=== PATIENT | male | born 1960 | race Caucasian/White ===

== ENCOUNTER → 2017-07-13 | Outpatient (CLI) | payer BC ==
--- NOTE | 2017-07-13 13:19 | Diagnostic Imaging Report ---
PROCEDURE: CT sinuses without contrast TECHNIQUE: Multiple contiguous axial images were obtained through the sinuses without the use of intravenous contrast. Coronal and sagittal reformations were then performed. INDICATION: Sinus pain and pressure around the left orbit and left face. FINDINGS: There is minimal mucosal thickening or mucous retention cyst in the inferior aspect of the left maxillary sinus. There is a patent ostiomeatal complex on both sides. The ethmoidal air cells and frontal sinuses appear clear. The sphenoidal sinuses appear clear. The mastoid air cells and the middle ear cavities are clear. The inferior turbinates demonstrate moderate mucosal thickening. There is mild nasal septal deviation to the right side. The orbits appear symmetric with no soft tissue mass identified. IMPRESSION: Minimal mucosal thickening along the inferior aspect of the left maxillary sinus. Mucosal thickening along the inferior turbinates without significant narrowing of the nasal passages. Dictated by: Dictated on workstation # [id number]
== END ==
LOC: RAD 12:15
PROVIDERS: ATTEND Otolaryngology Otolaryngology/Facial Plastic Surgery
DX: J34.9 Unspecified disorder of nose and nasal sinuses (principal)
CPT/HCPCS: 70486

== ENCOUNTER → 2017-09-15 | Outpatient (CLI) | payer BC | LOC: RAD 17:02 | PROVIDERS: ATTEND Orthopaedic Surgery | DX: M54.2 Cervicalgia (principal) ==

== ENCOUNTER → 2021-11-19 | Outpatient (CLI) | payer BC ==
[2021-11-19 11:44] LABS: BASOPHILS % (AUTO) 1 % (0-10); EOSINOPHILS # (AUTO) 0.1 10^3/uL (0.0-0.3); EOSINOPHILS % (AUTO) 2 % (0-10); HEMATOCRIT 49 % (40-54); HEMOGLOBIN 15.9 g/dL (13.3-17.7); LYMPHOCYTES # (AUTO) 0.6 10^3/uL (1.0-4.0); LYMPHOCYTES % (AUTO) 16 % (12-44); MEAN CORPUSCULAR HEMOGLOBIN 30 pg (25-34); MEAN CORPUSCULAR HGB CONC 32 g/dL (32-36); MEAN CORPUSCULAR VOLUME 92 fL (80-99); MEAN PLATELET VOLUME 10.5 fL (9.0-12.2); MONOCYTES # (AUTO) 0.3 10^3/uL (0.0-1.0); MONOCYTES % (AUTO) 10 % (0-12); NEUTROPHILS # (AUTO) 2.4 10^3/uL (1.8-7.8); NEUTROPHILS % (AUTO) 71 % (42-75); PLATELET COUNT 191 10^3/uL (130-400); WHITE BLOOD COUNT 3.4 10^3/uL (4.3-11.0)
[2021-11-19 12:02] LABS: BILIRUBIN,TOTAL 0.8 MG/DL (0.1-1.0); CALCIUM 9.6 MG/DL (8.5-10.1); CREATININE SERUM 1.36 MG/DL (0.60-1.30); POTASSIUM 4.2 MMOL/L (3.6-5.0); TOTAL PROTEIN 7.9 GM/DL (6.4-8.2)
--- NOTE | 2021-11-19 14:03 | Diagnostic Imaging Report ---
INDICATION: Weakness, cough, tiredness. FINDINGS: Two views of the chest demonstrate questionable tiny nodules in the left upper lobe. The right lung is clear. The heart is normal. There is no pneumothorax or effusion. Osseous structures are normal. IMPRESSION: Questionable nodules in the left upper lobe. CT chest recommended. Dictated by: Dictated on workstation # [id number]
== END ==
LOC: RAD 10:59
PROVIDERS: ATTEND Family Medicine
DX: R53.1 Weakness (principal); R05.9 Cough, unspecified; R53.83 Other fatigue
CPT/HCPCS: 36415; 71046; 80053; 85025; 86141

== ENCOUNTER → 2021-11-25 | Outpatient (CLI) | payer BC ==
[~2021-11-25] MED LIST: CATHETER FLUSH 10 ML SYR IV PRN; HOLD METFORMIN - RECEIVED CONTRAST 20 ML VIAL IV SCH; IOHEXOL 350 MG/ML 100 ML (OMNIPAQUE 350) VIAL IV ONE; NS 100 ML (IVPB) BAG IV ONE
--- NOTE | 2021-11-25 10:13 | Diagnostic Imaging Report ---
PROCEDURE: CT chest, abdomen, and pelvis with contrast. TECHNIQUE: Multiple contiguous axial images were obtained through the chest, abdomen, and pelvis after the administration of intravenous contrast. Auto Exposure Controls were utilized during the CT exam to meet ALARA standards for radiation dose reduction. INDICATION: Diffuse pain, flulike symptoms, recent chest radiograph shows indeterminate opacities in the left upper lobe. COMPARISON: No relevant comparison. CHEST: Some small mass in the left upper lobe centrally soft tissue in density, it does have a peripheral groundglass halo. When measured on lung windows it has a diameter of 1.4 cm. Peripheral to the nodule is some groundglass in subsolid regional nodularity of only 3 to 4 mm. A malignancy cannot be excluded, metabolic PET CT suggested as further evaluation. No other lung mass. No findings suggestive of typical pneumonia no effusion or pneumothorax is no axillary, hilar or mediastinal lymphadenopathy. There is no suspicious lytic or sclerotic bony lesion. The supraclavicular fossae unremarkable. The aorta is nonaneurysmal. ABDOMEN AND PELVIS: Liver'S density is consistent with its mild fatty infiltration. There is a benign cyst in the left hepatic lobe, no solid enhancing or suspect liver lesion, gallbladder and bile ducts normal. The spleen, adrenals and pancreas unremarkable. The unobstructed kidneys normal. There is no mesenteric or retroperitoneal lymphadenopathy. No ascites or omental infiltration. There are a few noninflamed diverticula of the sigmoid, the air-containing appendix is normal. No ascites, abscess hematoma or acute fluid collection. There is aortoiliac atherosclerotic vascular calcifications without aneurysm or acute finding. No features of end organ ischemia. IMPRESSION: 1. Left upper lobe nodularity with dominant mixed density 1.4 cm mass. Density could not be excluded. Recommend correlated metabolic PET CT as followup. 2. No thoracic abdominal or pelvic lymphadenopathy. No other potential neoplastic finding or acute abnormality shown.. Dictated by: Dictated on workstation # [id number]
== END ==
LOC: RAD 08:45
PROVIDERS: ATTEND Family Medicine
DX: R91.8 Other nonspecific abnormal finding of lung field (principal); R10.11 Right upper quadrant pain
CPT/HCPCS: 71260; 74177

== ENCOUNTER → 2021-12-09 | Outpatient (CLI) | payer BC ==
--- NOTE | 2021-12-09 13:31 | Diagnostic Imaging Report ---
INDICATION: Left upper lobe lung mass. Serum blood glucose level at time of injection is 184 mg/dL. Patient was administered 13.7 mCi F-18 FDG intravenously in the left forearm and PET imaging was performed from the top of skull to mid thighs. Noncontrast CT was also performed for attenuation correction and anatomic correlation. No prior PET/CT studies are available for comparison. Comparison is made with prior conventional CT of the chest, abdomen and pelvis from 11/25/2021. There is symmetric activity throughout the brain. Soft tissues of the neck are unremarkable. The areas of nodularity in the left upper lobe noted on recent CT did demonstrate FDG avidity. The dominant subpleural nodule left upper lobe demonstrates SUV max of 7.2. No mediastinal or hilar hypermetabolism is identified. There is physiologic activity throughout the gastrointestinal and genitourinary tracts of the abdomen and pelvis. No other suspicious abnormalities are seen. IMPRESSION: Hypermetabolic nodule in the left upper lobe, suspicious for lung neoplasm. No mediastinal or hilar hypermetabolism is seen. Dictated by: Dictated on workstation # [id number]
== END ==
LOC: RAD 08:23
PROVIDERS: ATTEND Family Medicine
DX: R91.1 Solitary pulmonary nodule (principal)
CPT/HCPCS: 78815; A9552

== ENCOUNTER 2022-01-03 08:15 | Outpatient (CLI) | payer BC ==
--- NOTE | 2021-12-20 06:46 | HISTORY AND PHYSICAL ---
DATE OF SERVICE: CHIEF COMPLAINT: To have a needle biopsy by radiologist of lung, has hyperaerated nodule and left upper lobe mass. ALLERGIC TO MEDICATIONS: Denies. MEDICATIONS NOW ON: Metformin 500 mg 2 in the a.m. and one in p.m., Farxiga 10 mg 1 daily, glyburide low dose aspirin, the patient took it today too. The patient told to stop taking his aspirin and to check with radiology when he should have this procedure done. PAST SURGICAL HISTORY: Neck with four fractures of discs, left leg and left foot same time, he had ____ problem. FAMILY HISTORY: Mom of pancreatic cancer. Denies asthma, TB, diabetes, heart disease. REVIEW OF SYSTEMS: HEAD: Denies headache, dizziness, fainting. EYES, EARS, NOSE AND THROAT: Denies diplopia, tinnitus, sore throat. HEART: Denies heart murmur, chest pain or shortness of breath. LUNGS: Never smoked. Denies asthma, TB. Previously had a cough and congestion. No wheezing. GASTROINTESTINAL: Appetite good. Denies blood in stools, diarrhea or constipation. GENITOURINARY: Denies blood, pain. Last night urinated one time. Has history of diabetes. The patient's fasting blood sugar this morning is 161. PHYSICAL EXAMINATION: GENERAL: The patient is a white male, well nourished, well developed, in no acute respiratory distress at rest. VITAL SIGNS: Weight 202, blood pressure 140/90, pulse 72. EARS: No discharge. EYES: No conjunctivitis or icterus. THROAT: Noninflamed. NECK: Thyroid not enlarged. No abnormal cervical lymphadenopathy noted. HEART: Regular rate and rhythm. LUNGS: Essentially clear. ABDOMEN: Soft. Liver and spleen nonpalpable. PLAN: The patient okay to have surgery once the aspirin is out of his system and the patient is diabetic, the patient has hyperlipidemia, he is on Livalo for that. Again, touch with radiology that the patient has been on aspirin. Job ID: [id number] DocumentID: [id number] Dictated Date: 12/18/2021 09:02:14 Graduate Research Assistant Date: 12/18/2021 09:15:06 Dictated By: RUBIO FISH DO
[~2022-01-03] VITALS: Ht 178 cm; Wt 94.4 kg
[2022-01-03] VITALS (11 sets, daily range): BP systolic 100–138; BP diastolic 54–86
[2022-01-03] MEDS ORDERED: NS IV 1000 ML 1,000 ML IV STA (08:19)
[2022-01-03] MEDS ORDERED: fentaNYL INJ 100 MCG/2 ML AMP IVP ONE (08:30)
[2022-01-03] MEDS ORDERED: MIDAZOLAM 2 MG/2 ML (VERSED) VIAL IVP ONE (08:30)
[2022-01-03] MEDS ORDERED: LIDOCAINE 1% INJ 20 ML VIAL INJ ONE (08:30)
[2022-01-03 09:03] LABS: HEMATOCRIT 43 % (40-54); HEMOGLOBIN 13.9 g/dL (13.3-17.7); MEAN CORPUSCULAR HEMOGLOBIN 30 pg (25-34); MEAN CORPUSCULAR HGB CONC 33 g/dL (32-36); MEAN CORPUSCULAR VOLUME 92 fL (80-99); MEAN PLATELET VOLUME 9.7 fL (9.0-12.2); PLATELET COUNT 233 10^3/uL (130-400); WHITE BLOOD COUNT 3.5 10^3/uL (4.3-11.0)
[2022-01-03] MEDS ORDERED: METF-397 PO ×2 (09:04→14:37)
[2022-01-03] MEDS ORDERED: ASPI-999 PO (09:04)
[2022-01-03] MEDS ORDERED: DAPA10TA PO (09:06)
[2022-01-03] MEDS ORDERED: GLYB1.253 PO (09:06)
[2022-01-03 09:17] LABS: INR 0.9 (0.8-1.4); PROTHROMBIN TIME PATIENT 12.9 SEC (12.2-14.7)
[2022-01-03] MEDS ORDERED: fentaNYL INJ 100 MCG/2 ML AMP ONE (11:34)
[2022-01-03] MEDS ORDERED: fentaNYL INJ 100 MCG/2 ML AMP IVP PRN ×2 (11:45→12:15)
[2022-01-03] MEDS ORDERED: HYDROcodone/APAP 5 MG/325 MG (LORTAB) TAB PO PRN (12:15)
[2022-01-03] MEDS ORDERED: ONDANSETRON 4 MG/2 ML (SDV) Z0FRAN IV PRN (12:15)
[2022-01-03] MEDS ORDERED: polyethylene glycoL POWDER 17 GM (MIRALAX) PACK PO PRN (12:15)
[2022-01-03] MEDS ORDERED: MELATONIN 3 MG TABLET PO PRN (12:15)
[2022-01-03] MEDS ORDERED: PATIENT MAY USE OWN MEDS, ALL PO SCH (12:15)
--- NOTE | 2022-01-03 13:01 | Pre-Op Note & Conscious Sedat ---
Pre-Operative Progress Note H&P Reviewed The H&P was reviewed, patient examined and no changes noted. Date H&P Reviewed: Jan 03, 2022 Time H&P Reviewed: 10:00 Pre-Op Diagnosis: lung nodule Conscious Sedation Pre-Proced Time 10:00 ASA Score 2 For ASA 3 and 4: Consider anesthesia and medical clearance. Also, for patients with a history of failed moderate sedation consider anesthesia. Airway Lungs Heart ASA score ASA 1: a normal healthy patient ASA 2: a patient with a mild systemic disease (mid diabetes, controlled hypertension, obesity ASA 3: a patient with a severe systemic disease that limits activity (angina, COPD, prior Myocardial infarction) ASA 4: a patient with an incapacitating disease that is a constant threat to life (CHF, renal failure) ASA 5: a moribund patient not expected to survive 24 hrs. (ruptured aneurysm) ASA 6: a declared brain- patient whose organs are being harvested. For emergent operations, add the letter E after the classification Mallampati Classification Grade 2 Sedation Plan Analgesia, Amnesia, Plan communicated to team members, Discussed options with patient/fam, Discussed risks with patient/fam The patient is an appropriate candidate to undergo the planned procedure, sedation, and anesthesia. The patient immediately re-assessed prior to indication. ANUSHA ELDER MD Jan 03, 2022 13:01
[2022-01-03] MEDS: NS IV 1000 ML 1,000 ML IV SCH ×2 (13:45→22:02)
[2022-01-03] MEDS ORDERED: GLIM2TAB4 PO (14:37)
[2022-01-03] MEDS ORDERED: FENO145T26 PO (14:37)
--- NOTE | 2022-01-03 14:59 | History & Physical-Hospitalist ---
History of Present Illness HPI/Chief Complaint Patient 61-year-old male with past medical history of [id number] diabetes type 2, hyperlipidemia who presented to the outpatient services for a CT-guided biopsy of a left lung nodule. I was called by Dr. Shaver due to significant hemoptysis. Patient normally takes aspirin but stopped this prior to the procedure. Despite this he had hemoptysis and was admitted to the ICU for observation overnight. He states he has had no more hemoptysis since coming up to the hospital. His only concern is about being able to eat at this point. Source: patient Date Seen 01/03/22 Time Seen by a Provider: 14:00 Attending Physician Akbar Welsh DO PCP Akbar Welsh DO Referring Physician Date of Admission Home Medications & Allergies Home Medications Reviewed patient Home Medication Reconciliation performed by pharmacy medication reconciliations auto transmission technician and/or nursing. Patients Allergies have been reviewed. Allergies Allergies Coded Allergies No Allergy Information Available (Unverified11/25/21) Past Bcgbvgw-Rxpsfz-Hkndal Hx Patient Social History Marrital Status: Tobacco Use?: No Smoking Status: Never a Smoker Smokeless Tobacco Frequency: Never a User Use of E-Cig and/or Vaping dev: No Substance use?: No Alcohol Use?: Yes Alcohol type: Beer Alcohol Frequency: Several times a month Pt feels they are or have been: No Immunizations Up To Date Tetanus Booster (TDap): Unknown Hepatitis A: No Hepatitis B: No Current Status Advance Directives: No Communicates: Verbally Primary Language: Mauritanian Preferred Spoken Language: Mauritanian Is interpretation needed?: No Past Medical History Surgeries: Orthopedic High Cholesterol Diabetes, Non-Insulin dep Family Medical History Reviewed Nursing Family Hx No Pertinent Family Hx Review of Systems Constitutional: No chills EENTM: no symptoms reported Respiratory: see HPI, cough, hemoptysis Cardiovascular: chest pain (chest wall) Genitourinary: no symptoms reported Musculoskeletal: no symptoms reported Skin: no symptoms reported Psychiatric/Neurological: No Symptoms Reported Physical Exam Physical Exam Vital Signs Vital Signs - First Documented 01/03/22 01/03/22 08:30 10:15 Temp 35.9 Pulse 68 Resp 16 B/P (MAP) 137/85 Pulse Ox 96 O2 Delivery Room Air O2 Flow Rate 2.00 Capillary Refill : Less Than 3 Seconds Height, Weight, BMI Height: '" Weight: lbs. oz. kg; 29.54 BMI Method: General Appearance: No Apparent Distress, WD/WN HEENT: PERRL/EOMI, Moist Mucous Membranes Neck: Normal Inspection, Supple Respiratory: Normal Breath Sounds, No Accessory Muscle Use, No Respiratory Distress; No Crackles, No Wheezing Cardiovascular: Regular Rate, Rhythm, No Murmur Gastrointestinal: Normal Bowel Sounds, Soft Neurologic/Psychiatric: Alert, Oriented x3, Normal Mood/Affect Skin: Normal Color, Warm/Dry Results Results/Procedures Labs Laboratory Tests 01/03/22 08:53 Patient resulted labs reviewed. Imaging: Reviewed Imaging Report Assessment/Plan Admission Diagnosis hemoptysis Admission Status: Observation Assessment and Plan hemoptysis Lung nodule iatrogenic following lung biopsy Discussed with Dr Shaver, radiology, he was able to get 2 core samples prior to aborting procedure Discussed with TeleICU pior to accepting to inquire about appropriateness of admission here and Dr Buitrago in agreement with monitoring overnight in the ICU NIDDMII Accuchecks and SSI HLD continue home meds Diagnosis/Problems Diagnosis/Problems (1) Hemoptysis THEA BEAR MD Jan 03, 2022 14:59
[2022-01-03 15:20] LABS: HEMOGLOBIN 13.3 g/dL (13.3-17.7)
--- NOTE | 2022-01-03 15:41 | Diagnostic Imaging Report ---
EXAMINATION: Chest 1 view HISTORY: Hemoptysis, status post biopsy COMPARISON: 01/03/2022, 11/19/2021 FINDINGS: Heart size and pulmonary vasculature are normal. Consolidation within the left upper lobe and left lower lobe. No pleural effusion or pneumothorax. The osseous structures are intact. IMPRESSION: 1. Consolidation within the left upper and lower lungs likely related to atelectasis and hemorrhage from recent biopsy. No pneumothorax. Dictated by: Dictated on workstation # [id number]
[2022-01-03] MEDS ORDERED: RT-ALBUTEROL SULF 2.5 MG/3 ML PRE-MIX VIAL INH PRN (15:45)
[2022-01-03] MEDS: inSUlin ASPART (NovoLOG) 1 UNIT/0.01 ML (CHARGE PER UNIT) SC SCH ×2 (17:00→22:02)
[2022-01-04 05:34] LABS: HEMATOCRIT 41 % (40-54); MEAN CORPUSCULAR HEMOGLOBIN 30 pg (25-34); MEAN CORPUSCULAR HGB CONC 32 g/dL (32-36); MEAN CORPUSCULAR VOLUME 93 fL (80-99); MEAN PLATELET VOLUME 10.5 fL (9.0-12.2); PLATELET COUNT 221 10^3/uL (130-400); WHITE BLOOD COUNT 3.6 10^3/uL (4.3-11.0)
[2022-01-04 05:40] LABS: INR 0.9 (0.8-1.4); PROTHROMBIN TIME PATIENT 12.6 SEC (12.2-14.7)
[2022-01-04 05:43] LABS: POTASSIUM 4.1 MMOL/L (3.6-5.0)
[2022-01-04 05:44] LABS: CALCIUM 8.8 MG/DL (8.5-10.1)
[2022-01-04 05:48] LABS: CREATININE SERUM 0.93 MG/DL (0.60-1.30)
[2022-01-04] MEDS: inSUlin ASPART (NovoLOG) 1 UNIT/0.01 ML (CHARGE PER UNIT) SC SCH (06:01)
[2022-01-04] MEDS: NS IV 1000 ML 1,000 ML IV SCH (06:05)
--- NOTE | 2022-01-04 09:32 | Discharge Inst-Simple/Standard ---
Discharge Inst-Standard Patient Instructions/Follow Up Plan of Care/Instructions/FU: Please continue take your medications as written. Please hold your aspirin until you are seen by Dr. FISH next week. Activity as Tolerated: Yes Discharge Diet: ADA Diet Return to The Hospital For: Chest pain, shortness of breath, difficulty taking deep breaths, coughing up bright red blood or increasing amounts of blood, fever, if you feel you are getting worse. THEA BEAR MD Jan 04, 2022 09:32
--- NOTE | 2022-01-04 09:35 | Discharge Summary ---
Diagnosis/Chief Complaint Date of Admission Date of Discharge Discharge Date: Jan 04, 2022 Admission Diagnosis hemoptysis Primary Care ClydehortensiaAkbar Rivas DO Discharge Diagnosis (1) Hemoptysis Discharge Summary Procedures/Consulations TeleICU/Pulm Discharge Physical Exam Allergies: Coded Allergies: No Known Drug Allergies (Unverified , 01/03/22) Vitals & I&Os Vital Signs Date Time Temp Pulse Resp B/P (MAP) Pulse Ox O2 Delivery O2 Flow Rate FiO2 01/04/22 09:00 73 127/62 94 Room Air 01/04/22 08:00 14 01/04/22 08:00 36.5 01/03/22 22:00 01/03/22 14:38 28 General Appearance: No Apparent Distress, WD/WN Neurologic/Psychiatric: Alert, Oriented x3 Hospital Course Patient was admitted to the hospital following CT-guided biopsy secondary to hemoptysis. He developed matt hemoptysis during his procedure. He was placed in left lateral decubitus and this resolved the bleeding but given the amount of blood lost he was admitted overnight for observation. I discussed the case with Dr. Buitrago prior to admission who recommended chest x-ray which was done roughly 4 hours after biopsy and showed no pneumothorax but did reveal a consolidation consistent with his pulmonary hemorrhage. He was watched overnight and had no problems oxygenating. His pain improved and he had no shortness of breath. He had no further hemoptysis. I discussed the case with Dr. Meyer with telemetry ICU this morning who advised no further work-up. He is to discharge home in stable and improved condition to follow-up with Dr. FISH this week. Labs (last 24 hrs) Laboratory Tests 01/03/22 15:10: Hemoglobin 13.3, Hematocrit 42 01/03/22 22:00: Glucometer 161H 01/04/22 04:38: Hemoglobin 13.0L, Hematocrit 41, White Blood Count 3.6L, Red Blood Count 4.39, Mean Corpuscular Volume 93, Mean Corpuscular Hemoglobin 30, Mean Corpuscular Hemoglobin Concent 32, Red Cell Distribution Width 12.6, Platelet Count 221, Mean Platelet Volume 10.5, Prothrombin Time 12.6, INR Comment 0.9, Sodium Level 139, Potassium Level 4.1, Chloride Level 111H, Carbon Dioxide Level 17L, Anion Gap 11, Blood Urea Nitrogen 10, Creatinine 0.93, Estimat Glomerular Filtration Rate 92, BUN/Creatinine Ratio 11, Glucose Level 125H, Calcium Level 8.8 Patient resulted labs reviewed. Pending Labs Laboratory Tests 01/04/22 04:38: White Blood Count 3.6, Red Blood Count 4.39, Hemoglobin 13.0, Hematocrit 41, Mean Corpuscular Volume 93, Mean Corpuscular Hemoglobin 30, Mean Corpuscular Hemoglobin Concent 32, Red Cell Distribution Width 12.6, Platelet Count 221, Mean Platelet Volume 10.5, Prothrombin Time 12.6, INR Comment 0.9, Sodium Level 139, Potassium Level 4.1, Chloride Level 111, Carbon Dioxide Level 17, Anion Gap 11, Blood Urea Nitrogen 10, Creatinine 0.93, Estimat Glomerular Filtration Rate 92, BUN/Creatinine Ratio 11, Glucose Level 125, Calcium Level 8.8 Imaging: Reviewed Imaging Report Discussion & Recommendations Discharge Planning: >30 minutes discharge planning Discharge Home Medications: Active Scripts Active Reported Fenofibrate (Fenofibrate Nanocrystallized) 145 Mg Tablet 145 Mg PO DAILY Metformin HCl 500 Mg Tablet 500 Mg PO 1800 Glimepiride 2 Mg Tablet 2 Mg PO HS Farxiga (Dapagliflozin Propanediol) 10 Mg Tablet 10 Mg PO DAILY Metformin HCl 500 Mg Tablet 1,000 Mg PO DAILY TAKES 2 (500MG) TABS Aspirin 81 Mg Tab.chew 81 Mg PO DAILY Instructions to patient/family Please see electronic discharge instructions given to patient. THEA BEAR MD Jan 04, 2022 09:35
--- NOTE | 2022-01-04 10:17 | Diagnostic Imaging Report ---
INDICATION: Left lung mass. Patient presents for CT-guided biopsy. TECHNIQUE: All CT scans use one or more of the following dose optimizing techniques: automated exposure control, MA and/or KvP adjustment based on patient size and exam type or iterative reconstruction. Patient brought to CT suite placed on table in the supine position. Axial imaging through the chest was performed to evaluate appropriate entry site. Left chest was prepped and draped usual sterile fashion. The procedure was performed utilizing conscious sedation with radiology nursing and constant patient monitoring. Patient was given a total of 100 mcg fentanyl intravenously and 1 mg of Versed intravenously. Total procedure time is approximately 16 minutes. 18-gauge coaxial Temno needle was advanced from an anterolateral approach and was placed with its tip along the margin of the nodular density in the left upper lobe. 2 core biopsies were obtained. At the completion of the 2nd pass patient did begin to cough. Patient began to hemoptyses. Follow-up imaging did show moderate amount of perilesional hemorrhage. Due to significant hemoptysis the procedure was terminated. Patient was placed on his left side immediately. Patient was hooked up to IV fluids. After several minutes the hemoptysis did subside. During the time of hemoptysis patient's vital signs including blood pressure, heart rate and oxygen saturation levels did remain normal. Due to the degree of hemoptysis it was decided to admit the patient to the hospitalist team, Dr. Felicia Heller. Patient was transferred to the ICU. Follow-up imaging prior to dismissal from the department did show moderate amount of perilesional hemorrhage in the left upper lobe. No significant pneumothorax was present. There was a very small hemothorax present. IMPRESSION: CT-guided left upper lobe biopsy. The procedure had to be terminated early due to development of hemoptysis, described above. Pathology results are currently pending. Dictated by: Dictated on workstation # [id number]
--- NOTE | 2022-01-04 10:17 | Tele-ICU Progress Note ---
Progress Note Patient seen via telehealth Video rounds completed 61 y/o who is s/pIR needle biopsy of lung mass Developed post procedure hemoptysis No further bleeding noted. No PNX on itial CXR Has had no SOB or hypoxemia overnight Hgb 13 this am PLAN: Ok for discharge Discussed with bedside RN and rounding physician Focused Exam Height, Weight, BMI Height: '" Weight: lbs. oz. kg; 29.79 BMI Method: Labs Laboratory Tests 01/03/22 15:10 01/04/22 04:38 Labs Labs Laboratory Tests 01/03/22 15:10: Hemoglobin 13.3, Hematocrit 42 01/03/22 22:00: Glucometer 161H 01/04/22 04:38: Hemoglobin 13.0L, Hematocrit 41, White Blood Count 3.6L, Red Blood Count 4.39, Mean Corpuscular Volume 93, Mean Corpuscular Hemoglobin 30, Mean Corpuscular Hemoglobin Concent 32, Red Cell Distribution Width 12.6, Platelet Count 221, Mean Platelet Volume 10.5, Prothrombin Time 12.6, INR Comment 0.9, Sodium Level 139, Potassium Level 4.1, Chloride Level 111H, Carbon Dioxide Level 17L, Anion Gap 11, Blood Urea Nitrogen 10, Creatinine 0.93, Estimat Glomerular Filtration Rate 92, BUN/Creatinine Ratio 11, Glucose Level 125H, Calcium Level 8.8 SAGAR JOHNSON MD Jan 04, 2022 10:17
[2022-01-04 10:45] VITALS: BP 166/91
== END 2022-01-04 10:40 | disposition home or self-care (01) ==
LOC: RAD 08:15 → ICU 11:47 → RAD 01-04 10:40
PROVIDERS: ATTEND Family Medicine
DX: R91.8 Other nonspecific abnormal finding of lung field (principal); R04.2 Hemoptysis
CPT/HCPCS: 36415; 71045; 77012; 80048; 82947; 85014; 85018; 85027; 85610; 85730; 87081; 99156; 99157